=== PATIENT | female | born 1985 | race American Indian/Alaskan Native ===

== ENCOUNTER 2016-10-10 18:57 | Emergency (ER) | payer MEDICAID, OTHER ==
[2016-10-10 19:47] VITALS: BP 126/87
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
[2016-10-10] MEDS ORDERED: ULTRAM PO ONE (20:16)
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
== END 2016-10-10 21:00 | disposition home or self-care (01) ==
LOC: ED 18:57
DX: S46.912A Strain of unspecified muscle, fascia and tendon at shoulder and upper arm level, left arm, initial encounter (principal); S16.1XXA Strain of muscle, fascia and tendon at neck level, initial encounter; R07.89 Other chest pain; M41.9 Scoliosis, unspecified; V49.49XA Driver injured in collision with other motor vehicles in traffic accident, initial encounter; Y93.89 Activity, other specified; Y99.8 Other external cause status; Y92.488 Other paved roadways as the place of occurrence of the external cause
CPT/HCPCS: 71020